=== PATIENT | female | born 1970 | race Caucasian/White ===

== ENCOUNTER → 2020-12-02 17:33 | Outpatient (CLI) | payer OTHER, SELFPAY ==
--- NOTE | ~2020-12-02 | MM_ITS ---
EXAMINATION: MM screening kyle BI w diogenes HISTORY: Screening TECHNIQUE: Craniocaudal and mediolateral oblique 3-D tomosynthesis images were obtained and synthetic 2-D images were generated. CAD analysis was submitted and interpreted. COMPARISON: Comparison to multiple prior studies sequentially, with oldest reviewed study dated 01/03. BREAST PARENCHYMAL COMPOSITION: There are scattered areas of fibroglandular density. FINDINGS: There is distortion of both breasts, consistent with previous breast reduction surgery. The re is no evidence of suspicious mass, calcification, or architectural distortion to suggest malignanc y in either breast. There has been no suspicious interval change. IMPRESSION: 1. No mammographic evidence of malignancy. 2. Recommend routine screening mammography in one year. BI-RADS Category 1: Negative Reviewed, dictated and finalized at location A.
== END ==
PROVIDERS: PCP Physician Assistant; Visit Provider Physician Assistant
DX: Z12.31 Encounter for screening mammogram for malignant neoplasm of breast (principal)
CPT/HCPCS: 77063; 77067

== ENCOUNTER 2021-03-29 20:53 | Observation (INO) | payer OTHER, SELFPAY ==
--- NOTE | ~2021-03-29 | XR_ITS ---
EXAMINATION: XR retrograde pyelo w/stent LT EXAM DATE: 03/30/2021 16:45 INDICATION: Left-sided stone extraction. TECHNIQUE: Fluoroscopy used during XR retrograde pyelo w/stent LT performed by Dr. Anthony Gonzales MD, urologist. The radiologist Geovani Reyez M.D. dictating this report of the image(s) available wa s not present for the procedure. Total fluoroscopic time of 65 seconds. The DAP for this procedure was 1188 radcm2. A total of 154 images sent to PACS from the exam. Cine run(s) available for review . FINDINGS: Left ureter was cannulated, injected. There is mild left hydronephrosis. A double-J ureter al stent was placed. Correlate with procedure note. Cholecystectomy clips. IMPRESSION: Left ureteral stent in position. Reviewed, dictated and finalized at location B.
--- NOTE | ~2021-03-29 | CT_ITS ---
EXAMINATION: CT abdomen pelvis wo con DATE: 03/29/2021 21:27 INDICATION: Left flank pain TECHNIQUE: Computed tomography (CT) of the abdomen and pelvis was performed without intravenous contr ast. Automated exposure control and iterative reconstruction technique were employed. Exam dose: 229 .09 mGy-cm total exam DLP. COMPARISON: None. FINDINGS: The lung bases are clear of infiltrate or consolidation. Normal heart size. No pericardial or pleural effusion. Status post cholecystectomy. The liver, spleen, pancreas, adrenal glands and right kidney are unremarkable. No hepatic, splenic, pancreatic, and adrenal or renal space-occupying mass lesion is detected. 5.8 mm obstructing proximal left ureteral calculus with mild to moderate left hydroureteronephrosis. Pinpoint upper pole left renal nonobstructing calculus. 2 mm nonobstructing lower pole left renal calculus. Normal caliber of the abdominal aorta. No intraperitoneal or retroperitoneal or pelvic mass lesion or adenopathy or ascites. Uterine enlargement; the adnexal areas and urinary bladder are unremarkable. Normal appendix. Mild colonic diverticulosis; no CT evidence of diverticulitis. No bowel obstruction, bowel wall thickening, pneumatosis or intraperitoneal free air. Included skeletal structures are unremarkable. IMPRESSION: 5.8 mm obstructing proximal left ureteral calculus with mild/moderate left hydroureteron ephrosis Mild nonobstructive left nephrolithiasis Status post cholecystectomy Mild colonic diverticulosis Reviewed, dictated and finalized at Location [facility]. Reviewed, dictated and finalized at location A. IMPRESSION: 5.8 mm obstructing proximal left ureteral calculus with mild/moder ate left hydroureteronephrosis Mild nonobstructive left nephrolithiasis Status post cholecystectomy Mild colonic diverticulosis
--- NOTE | ~2021-03-29 | XR_ITS ---
EXAMINATION: XR abdomen/kub 1V INDICATION: Left flank pain TECHNIQUE: Supine views of the abdomen were obtained on 2 radiographs. COMPARISON: CT of the same date FINDINGS: A subtle 5 mm calcification projects in the expected location of the left proximal ureter b etween the left L2 and L3 transverse processes. There are phleboliths of the pelvis. The bowel gas pa ttern is normal. The visualized lung bases are clear. Cholecystectomy clips are present in the right upper quadrant. IMPRESSION: 1. 5 mm left proximal ureteral stone. Reviewed, dictated and finalized at location A.
[2021-03-29 20:56] VITALS: BP 133/79; PULSE 82; RESP 19; TEMP 37.1; O2SAT 100
--- NOTE | 2021-03-29 21:13 | ED.ABDPAIN ---
HPI - Abdominal Pain General Chief Complaint: Back Pain/Injury Stated Complaint: left flank pain Time Seen by Provider: 03/29/21 21:10 Source: patient Mode of arrival: ambulatory Limitations: no limitations History of Present Illness HPI narrative: Patient is a 50-year-old female complaining of left flank pain that started approximately 3 hours prior to arrival. Patient states her pain is an 8 out of 10, sharp, nonradiating. Patient denies any chest pain, shortness of breath, abdominal pain, nausea, vomiting, diarrhea, urinary symptoms, fever or chills. Related Data Home Medications Medication Instructions Recorded Confirmed multivitamin 1 tablet PO DAILY 08/21/20 08/21/20 Allergies Allergy/AdvReac Type Severity Reaction Status Date / Time No Known Allergies Allergy Mild Verified 08/21/20 08:22 Review of Systems Review of Systems: All systems reviewed & are unremarkable except as noted in HPI and below Constitutional: Constitutional: Denies body ache(s), Denies chills, Denies excessive sweating, Denies fatigue, Denies fever(s), Denies headache(s), Denies lethargy, Denies malaise, Denies weakness and Denies weight loss Eyes: Eyes: Denies blurry vision, Denies change in vision and Denies loss of vision ENT: Denies dizziness, Denies ear discharge, Denies headache(s), Denies lip swelling, Denies epistaxis, Denies nasal congestion, Denies neck pain, Denies throat swelling and Denies tongue swelling Cardiovascular: Cardiovascular: Denies chest pain, Denies chest pain at rest, Denies chest pain with activity, Denies diaphoresis, Denies rapid heart rate, Denies edema, Denies irregular heart rhythm, Denies lightheadedness, Denies palpitations, Denies dyspnea and Denies dyspnea on exertion Respiratory: Respiratory: Denies chest congestion, Denies cough, Denies hemoptysis, Denies dyspnea and Denies dyspnea on exertion Gastrointestinal: Gastrointestinal: Denies abdominal pain, Denies melena, Denies hematochezia, Denies diarrhea, Denies nausea, Denies vomiting and Denies hematemesis Musculoskeletal: Musculoskeletal: Denies abnormal gait, Denies deformity, Denies joint swelling, Denies limited range of motion, Denies neck pain and Denies numbness Neurologic: Denies Abnormal speech present, Denies abnormal gait, Denies confusion, Denies dizziness, Denies headache(s), Denies focal weakness, Denies loss of vision, Denies numbness, Denies Other visual disturbances, Denies Sensory deficit (Neuro) and Denies weakness Psychiatric: Psychiatric: Denies confusion, Denies depression, Denies auditory hallucinations, Denies homicidal ideation and Denies suicidal ideation Endocrine: Endocrine: Denies cold intolerance, Denies excessive sweating, Denies fatigue, Denies heat intolerance and Denies palpitations Hematologic/Lymphatic: Hematologic/Lymphatic: Denies easy bleeding and Denies easy bruising Allergic/Immunologic: Allergic/Immunologic: Denies lip swelling, Denies throat swelling and Denies tongue swelling PMFSH Past Medical History Medical History Fracture, foot Mild acid reflux Surgical History Surgical History History of cholecystectomy Hx of breast reduction, elective Hx of tonsillectomy [place] teeth extracted Family History Family History Other Cerebrovascular accident Diabetes mellitus Heart disease Social History Social History Smoking status: Never smoker Second hand tobacco smoke exposure: No Alcohol intake: current Alcohol use details: consumes very seldom Substance use: never Substance use type: does not use Gender identity (if verbalized by the patient): Female Exam Const: General: cooperative, healthy appearing, comfortable, no acute distress, well developed, alert and kaylie
[2021-03-29 21:41] LABS: Basophils Absolute Auto 0.1 K/mm3 (0.0-0.1); Basophils Percent Auto 0.3 % (0.2-1.2); Eosinophils Percent Auto 0.1 % (0-4.4); Hematocrit 39.1 % (37.0-47.0); Hemoglobin 13.4 g/dL (12.0-15.0); Immature Granulocyte Absolute 0.05 K/mm3 (0.00-0.031); Immature Granulocyte Percent A 0.3 % (0-0.5); Lymphocytes Absolute Auto 1.36 K/mm3 (0.9-3.2); Lymphocytes Percent Auto 8.8 % (18.3-44.2); Mean Corpuscular HGB Conc 34.3 g/dl (32-36); Mean Corpuscular Hemoglobin 30.6 pg (26-34); Mean Corpuscular Volume 89.3 fl (80-100); Mean Platelet Volume 10.9 fl (7.4-10.4); Monocytes Percent Auto 6.2 % (2.6-8.5); Neutrophils Absolute Auto 13.1 K/mm3 (1.3-6.7); Neutrophils Percent Auto 84.3 % (45.5-73.1); Platelet Count Result 270 k/mm3 (150-375); Red Blood Count 4.38 M/mm3 (4.2-5.4); Red Cell Distribution Width 12.3 % (11.5-14.5); White Blood Count 15.5 K/mm3 (4.5-10.0)
[2021-03-29] MEDS: ONDANSETRON INJ 4 MG/2 ML VIAL IV PUSH (21:44)
[2021-03-29] MEDS: KETOROLAC 30 MG/ML VIAL (*BKC) IV PUSH (21:44)
[2021-03-29] MEDS: SODIUM CHLORIDE 0.9% IV 1,000 ML 999 ML IV CONT (21:44)
[2021-03-29 21:53] LABS: Alanine Aminotransferase 20 U/L (4-35); Albumin Level 4.6 g/dL (3.5-5.1); Alkaline Phosphatase 79 U/L (38-126); Anion Gap 11 mmol/L (8-16); Aspartate Amino Transferase 27 U/L (14-36); Bilirubin,Total 1.2 mg/dL (0.2-1.3); Blood Urea Nitrogen 15 mg/dL (7-17); Calcium 9.1 mg/dL (8.4-10.2); Carbon Dioxide 19 mmol/L (22-30); Chloride 102 mmol/L (98-107); Estimated CRCL calculation 87 ml/min; Estimated Glomerular Filt Rate > 60; Glucose 112 mg/dL (65-110); Lipase 76 U/L (23-300); Potassium 4.1 mmol/L (3.4-5.0); Sodium 132 mmol/L (137-145)
[2021-03-29 22:04] LABS: Add Urine Microscopic? YES; Appearance Urine Cloudy (Clear); Bacteria Urine Trace /hpf; Bilirubin Urine Negative (Negative); Blood Urine 1+ (Negative); Calcium Oxalate Crystals Urine Present /hpf; Color Urine Yellow (Yellow); Glucose Urine UA Negative (Negative); Ketones Urine 1+ mg/dL (Negative); Leukocyte Esterase Ur Trace LEU/UL (Negative); Mucus Urine Heavy /lpf; Nitrate Urine Negative (Negative); Protein Urine Negative (Negative); RBC Urine 21-50 /hpf (0-2); Specific Grav Ur 1.027 (1.001-1.035); Squamous Epithelial Cell Urine Many /hpf (Few); Urobilinogen Urine Negative mg/dL (<2.0)
[2021-03-29] MEDS: HYDROmorphone HCL INJ (*CRX) 1 MG/ML SYR IV PUSH (22:22)
[2021-03-29 22:29] VITALS: BP 129/88; PULSE 78; RESP 17; O2SAT 97
[2021-03-29 23:53] VITALS: BP 112/62; PULSE 82; RESP 18; O2SAT 100
[2021-03-30] VITALS (10 sets, daily range): BP systolic 90–133; BP diastolic 48–81; PULSE 57–108; RESP 16–20; TEMP 36.3–37.3; O2SAT 96–100; BMI 26.5
--- NOTE | 2021-03-30 00:47 | ADMGEN ---
This patient, Shana Rivera, was admitted to [facility] Room 307[facility]02. Patient/family oriented to hospital policies and general routines including ID bracelet, bed and alarms, visiting hours, pain management, procedures, bathroom and other care routines, personal items, smoking policy, room service/diet, and visiting hours. Information on how to activate the Rapid Response Team has been discussed. Patient/Family are encouraged to report perceived risks to care and to ask questions if they do not understand what they are told or what they should do.
[2021-03-30] MEDS: LACTATED RINGERS 1,000 ML 125 ML IV CONT ×2 (02:20→10:29)
[2021-03-30] MEDS: HYDROmorphone HCL INJ (*CRX) 1 MG/ML SYR 0.5 MG IV PUSH ×2 (03:32→06:07)
--- NOTE | 2021-03-30 11:39 | PM.IMHP ---
H&P: HPI History of Present Illness Date/Time: 03/30/21 11:39 This is a woman with no prior history of stone disease. She had acute onset of left flank pain yesterday on her way back from vacation. There was some nausea and vomiting. There is no fevers. There is no chills. There is no symptoms of urinary tract infection. No gross hematuria. She presented the emergency room. A CT scan was done. It showed a proximal left 5.8 mm stone. There was some hydronephrosis proximal to the stone. Her pain cannot be controlled with oral pain medicine in the emergency room. She was admitted for further management. Again this is her 1st stone episode. She is currently feeling well but we have discussed intervention for her stone which she would like to likely proceed this afternoon. I offered her discharge as well with a trial of conservative stone passage. Chief Complaint: Calculus ureter Review of Systems Review of Systems: All systems reviewed & are unremarkable except as noted in HPI and below PMFSH Past Medical History Medical History Fracture, foot Mild acid reflux Surgical History Surgical History History of cholecystectomy Hx of breast reduction, elective Hx of tonsillectomy [place] teeth extracted Family History Family History Other Cerebrovascular accident Diabetes mellitus Heart disease Social History Social History Smoking status: Never smoker Second hand tobacco smoke exposure: No Alcohol intake: current Alcohol use details: consumes very seldom Substance use: never Substance use type: does not use Gender identity (if verbalized by the patient): Female Spiritual care concerns: No Meds Home Medications and Allergies Home Medications Medication Instructions Recorded Confirmed Type multivitamin 1 tablet PO DAILY 08/21/20 03/30/21 History Allergies Allergy/AdvReac Type Severity Reaction Status Date / Time No Known Allergies Allergy Mild Verified 03/29/21 22:59 Vital Signs Vital Signs - 24 hr 03/29/21 20:56 03/29/21 22:29 03/29/21 23:53 Temperature 98.7 F Pulse Rate 82 78 82 Respiratory Rate 19 17 18 Blood Pressure 133/79 129/88 112/62 Pulse Oximetry 100 97 100 03/30/21 01:12 03/30/21 06:00 03/30/21 09:01 Temperature 98.1 F 97.4 F L Pulse Rate 78 57 L Respiratory Rate 18 18 Blood Pressure 108/57 L 90/48 L Pulse Oximetry 100 98 97 Exam Const: General: cooperative, healthy appearing, comfortable, alert, awake and Physically active HENMT: Head: normal to inspection General nose exam: Normal external nose present Face and sinus: normal facial exam Mouth: Yes Normal oral and palatal mucosa present Eyes: General: appearance normal, both eyes and all related structures Neck: Neck: normal visual inspection Resp: Effort & Inspection: normal respiratory effort, able to speak in complete sentences and no cough Cardio: Jugular venous distension: no JVD GI: Inspection: normal to inspection Skin: General skin exam: normal color and no rashes or lesions noted Neuro: General: oriented to person, oriented to place and oriented to time Extrem: General: normal to inspection Psych: Appearance: grossly normal and well kempt H&P: Results Labs Labs: Short CBC 03/29/21 Range/Units 21:33 WBC 15.5 H (4.5-10.0) K/mm3 Hgb 13.4 (12.0-15.0) g/dL Hct 39.1 (37.0-47.0) % Plt Count 270 (150-375) k/mm3 BMP 03/29/21 21:33 Sodium 132 L Potassium 4.1 Chloride 102 Carbon Dioxide 19 L BUN 15 Creatinine 0.70 Glucose 112 H Calcium 9.1 Liver Function 03/29/21 Range/Units 21:33 Total Bilirubin 1.2 (0.2-1.3) mg/dL AST 27 (14-36) U/L ALT 20 (4-35) U/L Alkaline Phosphatase 79 (38-1
--- NOTE | 2021-03-30 14:52 | WPDANESEPPF ---
Anes - Initial Pre Proc Eval Procedure: Operation Date: 03/30/21 16:00 Proposed Procedures p Cystoscopy, Left Ureteroscopy, Left Retrograde Pyelogram, Left Stone Extraction, Possible Left Stent Placement, - Anthony Gonzales MD s Possible Holmium Laser Procedure - Anthony Gonzales MD Date/Time: 03/30/21 14:52 Surgeon: Anthony Gonzales MD Pre Op Diagnosis: Acute obstructive uropathy, hydronephrosis Patient Data Age: 50 Gender: F Height: 1.75 m Weight: 81.6 kg Last Vital Signs Temp 36.7 C 03/30/21 14:28 Pulse 83 03/30/21 14:28 Resp 18 03/30/21 14:28 BP 133/68 03/30/21 14:28 Pulse Ox 100 03/30/21 14:28 Allergies Allergy/AdvReac Type Severity Reaction Status Date / Time No Known Allergies Allergy Mild Verified 03/29/21 22:59 Home Medications Medication Instructions Recorded Confirmed Type multivitamin 1 tablet PO DAILY 08/21/20 03/30/21 History Laboratory Tests 03/29/21 03/29/21 03/29/21 21:33 21:33 21:51 WBC 15.5 K/mm3 H K/mm3 (4.5-10.0) RBC 4.38 M/mm3 M/mm3 (4.2-5.4) Hgb 13.4 g/dL g/dL (12.0-15.0) Hct 39.1 % % (37.0-47.0) MCV 89.3 fl fl (80-100) MCH 30.6 pg pg (26-34) MCHC 34.3 g/dl g/dl (32-36) RDW 12.3 % % (11.5-14.5) Plt Count 270 k/mm3 k/mm3 (150-375) MPV 10.9 fl H fl (7.4-10.4) Immature Gran % (Auto) 0.3 % % (0-0.5) Neut % (Auto) 84.3 % H % (45.5-73.1) Lymph % (Auto) 8.8 % L % (18.3-44.2) [place] % (Auto) 6.2 % % (2.6-8.5) Eos % (Auto) 0.1 % % (0-4.4) Baso % (Auto) 0.3 % % (0.2-1.2) Lymph # (Auto) 1.36 K/mm3 K/mm3 (0.9-3.2) [place] # (Auto) 1.0 K/mm3 H K/mm3 (0.1-0.6) Eos # (Auto) 0.0 K/mm3 K/mm3 (0-0.3) Baso # (Auto) 0.1 K/mm3 K/mm3 (0.0-0.1) Abs Immat Gran (auto) 0.05 K/mm3 H K/mm3 (0.00-0.031) Absolute Neuts (auto) 13.1 K/mm3 H K/mm3 (1.3-6.7) Absolute Nucleated RBC 0.0 K/mm3 K/mm3 (0.0-0.012) Nucleated RBC % 0.0 % % (0.0-0.2) Sodium 132 mmol/L L mmol/L (137-145) Potassium 4.1 mmol/L mmol/L (3.4-5.0) Chloride 102 mmol/L mmol/L (98-107) Carbon Dioxide 19 mmol/L L mmol/L (22-30) Anion Gap 11 mmol/L mmol/L (8-16) BUN 15 mg/dL mg/dL (7-17) Creatinine 0.70 mg/dL mg/dL (0.7-1.0) Estim Creat Clear Calc 87 ml/min ml/min Estimated GFR > 60 (59 - ) Glucose 112 mg/dL H mg/dL (65-110) Calcium 9.1 mg/dL mg/dL (8.4-10.2) Total Bilirubin 1.2 mg/dL mg/dL (0.2-1.3) AST 27 U/L U/L (14-36) ALT 20 U/L U/L (4-35) Alkaline Phosphatase 79 U/L U/L (38-126) Total Protein 7.0 g/dL g/dL (6.3-8.2) Albumin 4.6 g/dL g/dL (3.5-5.1) Lipase 76 U/L U/L (23-300) Urine Color Yellow (Yellow) Urine Appearance Cloudy H (Clear) Urine pH 5.0 (5.0-9.0) Ur Specific [place] 1.027 (1.001-1.035) Urine Protein Negative mg/dL mg/dL (Negative) Urine Glucose (UA) Negative mg/dL mg/dL (Negative) Urine Ketones 1+ mg/dL H mg/dL (Negative) Ur Blood (Man) 1+ H (Negative) Urine Nitrate Negative (Negative) Urine Bilirubin Negative (Negative) Urine Urobilinogen Negative mg/dL mg/dL (<2.0) Leukocyte Esterase Rfl Trace GUILLERMINA/UL H GUILLERMINA/UL (Negative) Urine RBC 21-50 /hpf H /hpf (0-2) Urine WBC 10-15 /hpf H /hpf Ur Squamous Epith Cells Many /hpf H /hpf (Few) Calcium Oxalate Crystal Present /hpf /hpf (None) Urine Bacteria Trace /hpf /hpf Urine Mucus Heavy /lpf H /lpf Patient hx anesthesia problems: post op nausea/vomiting Fami
[2021-03-30] MEDS: SCOPOLAMINE 1.5 MG PATCH TRANSDERM (15:03)
--- NOTE | 2021-03-30 15:35 | WPDHPUPDATE1 ---
History and Physical Update Update Date/Time: 03/30/21 15:35 History and Physical has been reviewed, including an updated exam of the patient. There are NO changes in the patient's condition. Risks, benefits, and alternatives have been discussed and questions answered. Patient agrees to proceed with procedure. We will plan on cystoscopy, left ureteroscopy, stone extraction, stent placement
[2021-03-30] MEDS: LIDOCAINE HCL 2% GEL UROJET 10 ML PKG MUCOUS MEM (16:16)
--- NOTE | 2021-03-30 16:40 | P.OP_ITS ---
Procedure Note - Detailed Date of Procedure 03/30/21 Pre-op Diagnosis Left ureteral stone Post-op Diagnosis same Procedure Performed Cystoscopy, left retrograde pyelogram, left ureteroscopy, holmium laser lithotripsy, stone extraction, stent placement Surgeon Anthony Gonzales MD Anesthesia general Indications This was a left ureteral stone she presents today for intervention. Understands risks of bleeding, infection, damage to the urinary tract, lack of stone removal, need for additional procedures. She agrees to proceed Findings Left UPJ stone fragmented and removed Description of Procedure She was correctly identified. Informed consent was obtained. The from the operating room. She was given general anesthesia. She was prepped and draped in a sterile fashion. Time-out performed. Cystoscopy revealed a normal- appearing bladder without stones or abnormality. I did retrograde pyelogram on the left revealing a stone at the ureteropelvic junction. I placed a guidewire to the kidney. I then performed flexible ureteroscopy. I went up to the ureter the stone. I basketed the stone but was unable to get it past the UPJ. I used the holmium laser to fragment the stone. I dusted the outside of the stone and then had a small fragment which could be extracted intact. I reperformed a retrograde pyelogram to outline renal anatomy. I had a guidewire in the kidney. I placed a 4.8 variable length stent. Proximal coil in the renal pelvis. Distal coil the bladder. The bladder was drained. She was awakened and transferred to PACU in stable condition Implants Variable length stent Estimated Blood Loss 1 Drains Yes (Ureteral stone) Packing No Pathology yes (Ureteral stone) Complications No immediate complications Condition stable Disposition PACU
[2021-03-30] MEDS: LACTATED RINGERS 1,000 ML 30 ML IV CONT ×2 (16:49)
[2021-03-30] MEDS: PHENAZOPYRIDINE HCL 100 MG TABLET 200 MG PO (18:22)
--- NOTE | 2021-04-01 17:52 | PM.DS ---
DS: Admitting Diagnosis Discharge Date 03/30/21 Admitting Diagnosis ureteral stone DS: Discharge Diagnosis Discharge Diagnosis (1) Left ureteral stone: Code(s): N20.1 - Calculus of ureter Status: Acute Assessment and Plan: underwent uncomplicated ureteroscopy DS: Summary Hospital Course Hospital Course: uncomplicated ureterpscopy Time Spent with Patient Time attestation: Total time spent providing and/or coordinating discharge services: DS: Data Data Completed and Pending Completed studies during hospitalization: Pending at discharge 03/30/21 16:33 Surgical [PTH] Routine Discharge Plan Discharge Consulting providers: Geovani Reyez ; Phil Clayton ; Adrian Ruth Discharging Clinician: Anthony Gonzales Patient Disposition: Home, Self-Care Activity: as tolerated Diet: regular Discharge Instructions: Remove the Scopolamine patch that was placed behind your ear in 72 hours or less. Wash your hands after touching. Patient Instructions: Antibiotic Form, Kidney Stones (DC), Pain Management (DC), Cystoscopy (DC), Ureteral Stent Placement (DC), Ureteroscopy (DC) Stand Alone Forms: General Discharge Information Follow-up/Referrals: Anthony Gonzales MD [Physician] - 1 Week Discharge Medications: New hydrocodone-acetaminophen 5-325 mg tablet 1 tablet PO Q6H PRN (Reason: pain) Qty: 30 RF: 0 phenazopyridine [Pyridium] 200 mg tablet 200 mg PO TID PRN (Reason: pain) Qty: 30 RF: 0 oxybutynin chloride 5 mg tablet 5 mg PO TID PRN (Reason: Bladder spasms) Qty: 30 RF: 0 Continued multivitamin Tablet 1 tablet PO DAILY RF: 0 Date of admission: 03/29/21 22:52 Primary Care Provider: PHYSICIAN NOT ON STAFF,NONSTAFF Admitting Provider: Anthony Gonzales Attending physician on admission: Anthony Gonzales Condition: Improved
== END 2021-03-30 18:45 | disposition home or self-care (01) ==
LOC: ANHED 22:50 → ANH3MEDSUR 03-30 00:41
PROVIDERS: Admitting Provider Urology; Emergency Provider Emergency Medicine; Visit Provider Urology
PROC: (CPT 52352; principal; 2021-03-30 16:00)
PROC: (CPT 52356; 2021-03-30 16:00)
DX: N13.2 Hydronephrosis with renal and ureteral calculous obstruction (principal); K21.9 Gastro-esophageal reflux disease without esophagitis; Z90.49 Acquired absence of other specified parts of digestive tract
CPT/HCPCS: 52356; 36415; 74018; 74176; 74420; 80053; 81001; 82365; 83690; 85025; 87086; 87088; 88300; 96361; 96374; 96375; 96376; 99285; A9270; C1758; C1769; C2617; G0378; J0690; J1100; J1170; J1200; J1885; J2250; J2405; J2704; J3010; J7030; J7120; Q9966

== ENCOUNTER 2021-05-15 19:23 | Emergency (ER) | payer OTHER, SELFPAY ==
[2021-05-15 19:37] VITALS: BP 117/67; PULSE 78; RESP 18; TEMP 37.1; O2SAT 99
--- NOTE | 2021-05-15 19:52 | ED.URI ---
HPI - URI/Sore Throat General Chief Complaint: Upper Respiratory Infection Stated Complaint: throat burning,ear pain Time Seen by Provider: 05/15/21 19:52 Source: patient, RN notes reviewed and old records reviewed Mode of arrival: ambulatory Limitations: no limitations History of Present Illness HPI Narrative: 50-year-old female presents to the [facility] with complaints of throat burning and ear pain for 3 weeks. Patient reports that she has tried multiple [id number] products and nothing is working. Has sinus congestion and pressure. Intermittent rhinorrhea. Intermittent sinus headaches. Denies fevers, chest pain, shortness of breath. Denies abdominal pain Related Data Allergies Allergy/AdvReac Type Severity Reaction Status Date / Time No Known Allergies Allergy Mild Verified 05/15/21 19:45 Review of Systems Review of Systems: All systems reviewed & are unremarkable except as noted in HPI and below Constitutional: Constitutional: Reports no additional constitutional complaints, Denies chills and Denies fever(s) Eyes: Eyes: Reports no additional eye complaints ENT: Reports as per HPI, Reports nasal congestion and Reports sore throat Cardiovascular: Cardiovascular: Reports no additional cardiovascular complaints and Reports chest pain Respiratory: Respiratory: Reports no additional respiratory complaints, Denies cough, Denies dyspnea and Denies wheezing Gastrointestinal: Gastrointestinal: Reports no additional gastrointestinal complaints Musculoskeletal: Musculoskeletal: Reports no additional musculoskeletal complaints Integumentary/Breasts: Skin/Breast: Reports system reviewed and no additional complaints, except as docu Neurologic: Reports system reviewed and no additional complaints, except as documented Psychiatric: Psychiatric: Reports no additional psychiatric complaints Allergic/Immunologic: Allergic/Immunologic: Reports no additional allergic/immunologic complaints [facility] Past Medical History Medical History Fracture, foot Mild acid reflux Renal stones Surgical History Surgical History History of cholecystectomy Hx of breast reduction, elective Hx of tonsillectomy [place] teeth extracted Family History Family History Other Cerebrovascular accident Diabetes mellitus Heart disease Social History Social History Smoking status: Never smoker Second hand tobacco smoke exposure: No Alcohol intake: current Alcohol use details: consumes very seldom Substance use: never Substance use type: does not use Gender identity (if verbalized by the patient): Female Spiritual care concerns: No Comments At the time of my signature, I reviewed and agree with the nursing past medical, surgical, social, and family history. There is no relevant family history pertinent to the patient complaint. Exam Const: General: healthy appearing, no acute distress and alert Nutritional Appearance: well nourished Orientation/consciousness: patient oriented x3 Limitations: no limitations HENMT: Head: normal to inspection Ears: external ears normal, EAC's normal and TM abnormal bulging on the left and with fluid behind the TM on the left; not erythematous, with no loss of landmarks and not perforated General nose exam: Abnormal mucous membranes and turbinates present boggy and Nasal discharge present clear Face and sinus: normal facial exam Throat: posterior oropharynx abnormal cobblestoning and postnasal drainage Eyes: Pupils: Equal, round and reactive pupils present Neck: Neck: normal visual inspection, no lymphadenopathy, no meningeal signs and lymphadenopathy Chest: Chest palpation & inspection: normal inspection of the chest Resp: Effort & Inspection: normal respiratory effort Auscultation: clear
== END 2021-05-15 20:18 | disposition home or self-care (01) ==
PROVIDERS: Emergency Provider Nurse Practitioner
DX: H65.92 Unspecified nonsuppurative otitis media, left ear (principal); J32.9 Chronic sinusitis, unspecified; J02.9 Acute pharyngitis, unspecified; R09.82 Postnasal drip
CPT/HCPCS: 87081; 87880; 99213; G0463

== ENCOUNTER 2022-09-07 19:27 | Emergency (ER) | payer BC, SELFPAY ==
[2022-09-07] VITALS (8 sets, daily range): BP systolic 119–169; BP diastolic 68–84; PULSE 109; RESP 18; TEMP 37; O2SAT 96–100
--- NOTE | ~2022-09-07 | CT_ITS ---
EXAMINATION: CT abdomen pelvis w con DATE: 09/08/2022 00:40 INDICATION: Bilateral flank pain TECHNIQUE: Computed tomography (CT) of the abdomen and pelvis was performed with 100 mL Omnipaque-350 intravenous contrast. Automated exposure control and iterative reconstruction technique were employe d. The dose-length product was 520.35 mGy-cm. COMPARISON: 03/25/2021 FINDINGS: Mild atelectasis/scarring at the caudal aspect of the lingula. Heart size is normal. No pericardial o r pleural effusion. Small sliding-type hiatal hernia. Mild focal hepatic steatosis at the ligamentum teres. There are few small low-attenuation cysts in the left hepatic lobe. Largest measuring 2.1 cm m aximal diameter. Cholecystectomy clips at the gallbladder fossa. Pancreas, spleen, bilateral adrenal glands and and right kidney are normal. Unchanged 3 mm nonobstructing stone at the lower pole of the left kidney. Bowels including the appendix are normal. Bladder and bilateral adnexa are unremarkable. 6.0 cm peripherally and hyperenhancing, centrally hypoenhancing intrauterine mass which does not roberto ear significantly changed in size but which is more clearly visualized in the current No free intrape ritoneal gas or fluid. No pathologically enlarged abdominal or pelvic lymphadenopathy. Mild lumbar sp ondylosis. IMPRESSION: 1. No acute intra-abdominal/pelvic process. Specifically the appendix is normal. 2. Small sliding-type hiatal hernia. 3. Nonobstructing 3 mm left renal stone. 4. 6 cm uterine fibroid. Reviewed, dictated and finalized at location A. IMPRESSION: 1. No acute intra-abdominal/pelvic process. Specifically the appendix is normal . 2. Small sliding-type hiatal hernia. 3. Nonobstructing 3 mm left renal stone. 4. 6 cm uterine fibroid.
[2022-09-07 19:55] LABS: Basophils Absolute Auto 0.1 K/mm3 (0.0-0.1); Basophils Percent Auto 0.5 % (0.2-1.2); Eosinophils Absolute Auto 0.1 K/mm3 (0-0.3); Eosinophils Percent Auto 0.7 % (0-4.4); Hematocrit 43.2 % (37.0-47.0); Hemoglobin 14.2 g/dL (12.0-15.0); Immature Granulocyte Absolute 0.05 K/mm3 (0.00-0.031); Immature Granulocyte Percent A 0.3 % (0-0.5); Lymphocytes Absolute Auto 1.44 K/mm3 (0.9-3.2); Lymphocytes Percent Auto 9.3 % (18.3-44.2); Mean Corpuscular HGB Conc 32.9 g/dl (32-36); Mean Corpuscular Hemoglobin 29.4 pg (26-34); Mean Corpuscular Volume 89.4 fl (80-100); Mean Platelet Volume 10.6 fl (7.4-10.4); Monocytes Absolute Auto 1.1 K/mm3 (0.1-0.6); Monocytes Percent Auto 6.8 % (2.6-8.5); Neutrophils Absolute Auto 12.8 K/mm3 (1.3-6.7); Neutrophils Percent Auto 82.4 % (45.5-73.1); Platelet Count Result 320 k/mm3 (150-375); Red Blood Count 4.83 M/mm3 (4.2-5.4); Red Cell Distribution Width 12.8 % (11.5-14.5); White Blood Count 15.5 K/mm3 (4.5-10.0)
[2022-09-07 20:05] LABS: Alanine Aminotransferase 25 U/L (6-35); Albumin Level 4.9 g/dL (3.5-5.1); Alkaline Phosphatase 96 U/L (38-126); Anion Gap 9 mmol/L (8-16); Aspartate Amino Transferase 23 U/L (14-36); Bilirubin,Total 1.3 mg/dL (0.2-1.3); Blood Urea Nitrogen 13 mg/dL (7-17); Calcium 9.2 mg/dL (8.4-10.2); Carbon Dioxide 27 mmol/L (22-30); Chloride 101 mmol/L (98-107); Estimated CRCL calculation 86 ml/min; Estimated Glomerular Filt Rate > 60; Glucose 136 mg/dL (65-110); Lipase 63 U/L (23-300); Potassium 3.9 mmol/L (3.4-5.0); Sodium 137 mmol/L (137-145)
[2022-09-07 20:32] LABS: Appearance Urine Clear (Clear); Bilirubin Urine Negative (Negative); Blood Urine Negative (Negative); Color Urine Yellow (Yellow); Glucose Urine UA Trace mg/dL (Negative); Ketones Urine 1+ mg/dL (Negative); Leukocyte Esterase Ur Negative LEU/UL (Negative); Nitrate Urine Negative (Negative); Protein Urine Negative (Negative)
[2022-09-07 20:45] LABS: Add Urine Microscopic? YES
--- NOTE | 2022-09-07 23:44 | ED.ABDPAIN ---
HPI - Abdominal Pain General Chief Complaint: Abdominal Pain <Bisi Khan PA-C - Last Filed: 09/08/22 02:59> Stated Complaint: abdminal pain <Bisi Khan PA-C - Last Filed: 09/08/22 02:59> Time Seen by Provider: 09/07/22 23:21 <Bisi Khan PA-C - Last Filed: 09/08/22 02:59> History of Present Illness HPI narrative: Patient is a 51-year-old female with a history of kidney stones here for evaluation of diffuse lower abdominal pain over the past day. Patient states that her pain began in her left flank and has since wrapped around into her lower pelvic region. Patient reports nausea but no vomiting. She has had no fevers, chills, dysuria, urgency or frequency, vaginal discharge or vaginal bleeding. She was seen in urgent care facility today who referred her to the ED due to presence of right lower quadrant tenderness and guarding on exam. She does still have her appendix. She has taken ibuprofen without relief of her symptoms. <Bisi Khan PA-C - Last Filed: 09/08/22 02:59> Related Data Allergies/Adverse Reactions: Allergies Allergy/AdvReac Type Severity Reaction Status Date / Time No Known Allergies Allergy Mild Verified 09/07/22 19:28 <Bisi Khan PA-C - Last Filed: 09/08/22 02:59> Review of Systems Review of Systems: Gen.: Denies fevers or chills Eyes: Denies eye pain or visual change ENT: Denies congestion Respiratory: Denies shortness of breath or cough CV: Denies chest pain or palpitations GI: Denies abdominal pain nausea, emesis or diarrhea reports pelvic pain Musculoskeletal: Reports left flank pain Neuro: Denies numbness, tingling, weakness or focal weakness Skin: Denies rash Except as documented, all other systems reviewed and negative <Bisi Khan PA-C - Last Filed: 09/08/22 02:59> PMFSH Past Medical History Medical History: Medical History Fracture, foot Mild acid reflux Renal stones <Bisi Khan PA-C - Last Filed: 09/08/22 02:59> Surgical History Surgical History: Surgical History History of cholecystectomy Hx of breast reduction, elective Hx of tonsillectomy [place] teeth extracted <Bisi Khan PA-C - Last Filed: 09/08/22 02:59> Family History Family History: Family History Other Cerebrovascular accident Diabetes mellitus Heart disease <Bisi Khan PA-C - Last Filed: 09/08/22 02:59> Social History Social History: Social History Smoking status: Never smoker Second hand tobacco smoke exposure: No Alcohol intake: current Alcohol use details: consumes very seldom Substance use: never Substance use type: does not use Gender identity (if verbalized by the patient): Female Spiritual care concerns: No <Bisi Khan PA-C - Last Filed: 09/08/22 02:59> Exam Narrative: APPEARANCE: Uncomfortable appearing. Head: Normocephalic and atraumatic. EYES: PERRLA/EOMI, conjunctivae clear NOSE: No nasal drainage EARS: External ear normal in appearance THROAT: Oropharynx is clear. Mucous membranes are moist. NECK: Supple. No adenopathy, no masses. RESPIRATORY: Airway patent, respirations nonlabored. Clear to auscultation bilaterally, no rales, rhonchi, wheezing. CARDIOVASCULAR: Regular rate and rhythm without murmurs, rubs, or gallops. ABDOMINAL: She has moderate tenderness to palpation in the right lower quadrant with involuntary guarding. She has tenderness to palpation of the left lower quadrant as well. MUSCULOSKELETAL: Extremities are warm and well-perfused. Moves all extremities well. No edema. NEURO: Normal speech. No focal neurologic deficits. SKIN: Skin is warm and dry. No rashes. PSYCHIATRIC: Norm
[2022-09-08] MEDS: SODIUM CHLORIDE 0.9% IV 1,000 ML 999 ML IV CONT (00:11)
[2022-09-08] MEDS: ONDANSETRON INJ 4 MG/2 ML VIAL IV PUSH (00:12)
[2022-09-08 01:26] LABS: Lactic Acid Reflex 0.9 mmol/L (0.7-2.0)
[2022-09-08] MEDS: KETOROLAC 15 MG/ML VIAL (*BKC) IV PUSH (02:25)
[2022-09-08 02:47] VITALS: BP 106/63; PULSE 76; O2SAT 96; O2SAT 97
[2022-09-08 02:48] VITALS: BP 106/63; O2SAT 96
[2022-09-08 02:56] VITALS: TEMP 36.6
== END 2022-09-08 02:59 | disposition home or self-care (01) ==
PROVIDERS: Emergency Medicine; Emergency Provider Physician Assistant
DX: R10.2 Pelvic and perineal pain (principal); K21.9 Gastro-esophageal reflux disease without esophagitis; Z87.442 Personal history of urinary calculi; K44.9 Diaphragmatic hernia without obstruction or gangrene; N20.0 Calculus of kidney; D25.9 Leiomyoma of uterus, unspecified
CPT/HCPCS: 36415; 74177; 80053; 81001; 81025; 83605; 83690; 85025; 87040; 96365; 96375; 99284; J0131; J1885; J2405; J7030; Q9967